=== PATIENT | female | born 1950 | race Caucasian/White ===

== ENCOUNTER 2023-09-18 06:56 | Day surgery (SDC) | payer OTHER ==
[~2023-09-18] VITALS: Ht 160 cm; Wt 124.7 kg
[2023-09-18] MEDS ORDERED: SIMETHICONE 40 MG/0.6 ML ML ONE (07:11)
[2023-09-18] MEDS ORDERED: fentaNYL CITRATE/PF 100 MCG/2 ML AMP ONE (07:46)
[2023-09-18] MEDS ORDERED: MIDAZOLAM HCL 5 MG/5 ML VIAL ONE (07:46)
[2023-09-18 12:08] VITALS: TEMP 97; O2SAT 97
[2023-09-18 13:56] VITALS: BP_SYST 133; PULSE 62; RESP 22
== END 2023-09-18 09:41 | disposition home or self-care (01) ==
LOC: SDS 06:56 → SMU 06:57 → SDS 09:41
PROVIDERS: ATTEND Student in an Organized Health Care Education/Training Program
DX: K21.9 Gastro-esophageal reflux disease without esophagitis (principal); K29.50 Unspecified chronic gastritis without bleeding; D13.2 Benign neoplasm of duodenum; E78.00 Pure hypercholesterolemia, unspecified; N18.6 End stage renal disease; M10.9 Gout, unspecified; J44.9 Chronic obstructive pulmonary disease, unspecified; Z88.0 Allergy status to penicillin; Z99.2 Dependence on renal dialysis; Z98.51 Tubal ligation status; Z88.1 Allergy status to other antibiotic agents; Z79.899 Other long term (current) drug therapy; Z87.891 Personal history of nicotine dependence
CPT/HCPCS: 43251; 43239; 99152; 88305; 88312; 88313; G0378; J2250; J3010